=== PATIENT | male | born 1980 | race Caucasian/White ===

== ENCOUNTER 2022-06-22 00:05 | Inpatient (IN) | payer MEDICAID, OTHER ==
[~2022-06-22] VITALS: Ht 182.9 cm; Wt 104.5 kg
[2022-06-22] VITALS (12 sets, daily range): BP systolic 107–134; BP diastolic 62–82
[~2022-06-22 00:05] MED LIST: IBUP-1986 PO; METH-360 PO; ONDA4TAB12 PO
[2022-06-22 01:18] LABS: BASOPHILS # (AUTO) 0.1 X10'3 (0-0.2); BASOPHILS % (AUTO) 1.1 % (0-1); EOSINOPHILS # (AUTO) 0.2 X10'3 (0-0.9); EOSINOPHILS % (AUTO) 1.9 % (0-6); LYMPHOCYTES # (AUTO) 2.7 X10'3 (1.1-4.8); LYMPHOCYTES % (AUTO) 26.5 % (21-51); MEAN CORPUSCULAR HEMOGLOBIN 22.1 PG (27.0-31.0); MEAN CORPUSCULAR HGB CONC 31.3 g/dL (33.0-36.5); MEAN CORPUSCULAR VOLUME 70.7 FL (78-98); MEAN PLATELET VOLUME 8.4 FL (7.4-10.4); MONOCYTES # (AUTO) 0.7 X10'3 (0-0.9); MONOCYTES % (AUTO) 6.6 % (2-12); NEUTROPHILS # (AUTO) 6.5 X10'3 (1.8-7.7); NEUTROPHILS % (AUTO) 63.9 % (42-75); PLATELET COUNT 377 X10'3 (140-440); RED BLOOD COUNT 2.77 X10'6 (4.70-6.10); RED CELL DISTRIBUTION WIDTH 19.1 % (11.5-14.5); WHITE BLOOD COUNT 10.1 X10'3 (4.5-11.0)
[2022-06-22 01:25] LABS: HEMATOCRIT 19.6 % (42.0-52.0); HEMOGLOBIN 6.1 g/dl (14.0-17.9)
[2022-06-22 01:30] LABS: ALANINE AMINOTRANSFERASE 26 U/L (12-78); ALBUMIN 2.7 G/DL (3.4-5.0); ALBUMIN/GLOBULIN RATIO 0.9 (1.1-1.5); ALKALINE PHOSPHATASE 88 IU/L (46-116); ANION GAP 7 (8-16); ASPARTATE AMINO TRANSFERASE 16 U/L (10-37); BILIRUBIN,TOTAL 0.1 MG/DL (0.1-1.0); BLOOD UREA NITROGEN 16 MG/DL (7-18); BUN/CREATININE RATIO 21.1 (5.4-32.0); CALCIUM 7.5 MG/DL (8.5-10.1); CHLORIDE 105 MMOL/L (99-107); CREATININE 0.76 MG/DL (0.60-1.10); GLUCOSE 127 MG/DL (70-104); LIPASE 161 U/L (73-393); POTASSIUM 3.6 MMOL/L (3.5-5.1); SODIUM 135 MMOL/L (135-145); TOTAL CARBON DIOXIDE 22.7 MMOL/L (24-32); TOTAL PROTEIN 5.8 G/DL (6.4-8.2); eGFR > 90 ML/MIN
[2022-06-22] MEDS ORDERED: ondansetron/PF 4mg/2ml inj IV ONE ×3 (02:15→05:00)
[2022-06-22 03:33] LABS: CLARITY,URINE CLEAR (Clear); COLOR,URINE YELLOW (Yellow); GLUCOSE, URINE NEGATIVE (Neg); KETONES,URINE NEGATIVE (Neg); LEUKOCYTE ESTERASE ,URINE NEGATIVE (Neg); NITRITES, URINE NEGATIVE (Neg); OCCULT BLOOD,URINE NEGATIVE (Neg); PH,URINE 5.5 (4.8-8.0); PROTEIN,URINE NEGATIVE (Neg); UROBILINOGEN,URINE 0.2 E.U/dL (0.2-1.0)
[2022-06-22 03:39] LABS: UA COLLECTION TYPE URINAL
[2022-06-22] MEDS ORDERED: pantoprazole 40MG/NS 100ML BAG 100 ML IV ONE (04:00)
[2022-06-22] MEDS ORDERED: tranexamic acid 1gm/0.7% sal. 100 ML IV ONE (04:00)
[2022-06-22] MEDS ORDERED: octreotide inj. 1,250 MCG in normal saline 250ml IV soln 250 ML IV ONE (04:00)
[2022-06-22] MEDS ORDERED: pantoprazole IV 80 MG in normal saline 100ml IV soln 100 ML IV ONE (04:00)
[2022-06-22 04:23] LABS: ANISOCYTOSIS 2+; ELLIPTOCYTES 1+; MICROCYTOSIS 1+; PLATELET ESTIMATE NORMAL; POLYCHROMASIA FEW
[2022-06-22 04:24] LABS: ACANTHOCYTES FEW; BURR CELLS FEW; TEAR DROP CELLS FEW
[2022-06-22] MEDS ORDERED: octreotide inj. 500 MCG in normal saline 100ml IV soln 97.5 ML IV SCH ×2 (04:25→12:30)
[2022-06-22 04:26] LABS: MAGNESIUM 1.7 MG/DL (1.5-2.4)
[2022-06-22] MEDS ORDERED: ringers solution, lacted 1,000 ML IV ONE (04:30)
[2022-06-22 04:32] LABS: ETHANOL < 0.010 GM/DL (0.0-0.010)
[2022-06-22 04:53] LABS: APTT 20 SECONDS (22-32)
[2022-06-22 05:23] LABS: CREATINE KINASE 103 U/L (39-308)
[2022-06-22 06:07] LABS: URINE AMPHETAMINE SCREEN POSITIVE (Neg); URINE BARBITUATE SCREEN NEGATIVE (Neg); URINE BENZODIAZEPINES SCREEN NEGATIVE (Neg); URINE CANNABINOID SCREEN NEGATIVE (Neg); URINE COCAINE SCREEN NEGATIVE (Neg); URINE METHADONE SCREEN NEGATIVE (Neg); URINE OPIATE SCREEN NEGATIVE (Neg); URINE PHENCYCLIDINE SCREEN NEGATIVE (Neg)
[2022-06-22 06:08] LABS: OCCULT BLOOD STOOL POSITIVE (Neg)
[2022-06-22] MEDS: pantoprazole 40MG/NS 100ML BAG 100 ML IV SCH ×3 (06:30→17:17)
--- NOTE | 2022-06-22 06:30 | NUR ---
first contact with pt, found supine in bed. vss. pt is pale, states he "does not feel well". pt has not had any episodes of bloody emesis recently. pt is awaiting GI lab. pt in no distress. awating admit orders.
--- NOTE | 2022-06-22 07:00 | NUR ---
per blood bank, pt has "anti [place]" blood and "other reactions". blood must be sent to [place] for further eval. blood will not be here until approx 1600. emergent cross matched blood is available. will inform .
[2022-06-22 08:36] LABS: MEAN CORPUSCULAR HEMOGLOBIN 22.3 PG (27.0-31.0); MEAN CORPUSCULAR HGB CONC 31.4 g/dL (33.0-36.5); MEAN CORPUSCULAR VOLUME 70.9 FL (78-98); PLATELET COUNT 320 X10'3 (140-440); RED BLOOD COUNT 2.46 X10'6 (4.70-6.10); RED CELL DISTRIBUTION WIDTH 18.7 % (11.5-14.5); WHITE BLOOD COUNT 8.4 X10'3 (4.5-11.0)
[2022-06-22 08:39] LABS: HEMATOCRIT 17.4 % (42.0-52.0); HEMOGLOBIN 5.5 g/dl (14.0-17.9)
--- NOTE | 2022-06-22 08:45 | NUR ---
pt ambulated with steady gait to/from restroom. report dizziness, pt is pale. returned to bed without incident.
[2022-06-22] MEDS ORDERED: fentaNYL/PF 50MCG/1 ML 2ML syringe ONE (09:09)
[2022-06-22] MEDS ORDERED: MIDAZolam 1 MG/ML 5ML VIAL ONE (09:10)
--- NOTE | 2022-06-22 09:35 | NUR ---
first unit cross matched emergent blood started per dr. mariano.
--- NOTE | 2022-06-22 09:45 | NUR ---
pt to GI lab with GI nurse, blood infusing.
[2022-06-22] MEDS ORDERED: LIDOcaine Viscous 15ml cup ONE (10:24)
--- NOTE | 2022-06-22 11:30 | NUR ---
returned from GI lab, report at bedside. ICU doctor updated.
[2022-06-22] MEDS ORDERED: sodium chloride 0.45% 1,000 ML IV SCH (12:25)
[2022-06-22] MEDS ORDERED: magnesium 2GM in 50ml NS 50 ML IV PRN (12:25)
[2022-06-22] MEDS ORDERED: magnesium Cl slow-release 64mg tablet PO PRN (12:25)
[2022-06-22] MEDS ORDERED: POTASSIUM BICARB 20meq eff tab 20 MEQ TABLET.EFF PO PRN ×2 (12:25)
[2022-06-22] MEDS ORDERED: mag hydrox/Alum hydrox/simeth 30ml oral suspension PO PRN (12:25)
[2022-06-22] MEDS ORDERED: magnesium hydroxide 30ml (MOM) UD suspension PO PRN (12:25)
[2022-06-22] MEDS ORDERED: magnesium 4gm in 100ml NS 100 ML IV PRN (12:25)
[2022-06-22] MEDS ORDERED: potassium CL 10mEq/100ml bag 100 ML IV PRN (12:25)
[2022-06-22] MEDS ORDERED: acetaminophen 325mg tablet PO PRN (12:25)
[2022-06-22] MEDS ORDERED: ondansetron/PF 4mg/2ml inj IV PRN (12:25)
--- NOTE | 2022-06-22 13:00 | NUR ---
Pt alert, awake. Appears less pale. Interactive; responds appropriately. bedside.
[2022-06-22] MEDS ORDERED: NO HOME MEDS (13:52)
[2022-06-22 15:30] LABS: MAGNESIUM 1.8 MG/DL (1.5-2.4)
[2022-06-22 15:35] LABS: HEMATOCRIT 23.8 % (42.0-52.0); HEMOGLOBIN 7.5 g/dl (14.0-17.9); MEAN CORPUSCULAR HEMOGLOBIN 23.5 PG (27.0-31.0); MEAN CORPUSCULAR HGB CONC 31.4 g/dL (33.0-36.5); MEAN PLATELET VOLUME 8.2 FL (7.4-10.4); PLATELET COUNT 316 X10'3 (140-440); RED BLOOD COUNT 3.18 X10'6 (4.70-6.10); RED CELL DISTRIBUTION WIDTH 20.6 % (11.5-14.5); WHITE BLOOD COUNT 7.3 X10'3 (4.5-11.0)
[2022-06-22] MEDS ORDERED: pantoprazole 40MG/NS 100ML BAG 100 ML IV SCH (16:00)
[2022-06-22] MEDS ORDERED: docusate sod 100mg capsule PO SCH (20:00)
[2022-06-22] MEDS ORDERED: K and/or MAG REPLACEMENT MC SCH (20:00)
--- NOTE | 2022-06-22 20:55 | NUR ---
PATIENT IS FOUND WALKING OUTSIDE OF ER, BY THE MAIN LOBBY, WITH IV TUBINGS PULLED APART AND BLOOD DRIPPING ON THE FLOOR. PATIENT DIRECTED BACK TO HIS ROOM AND STATES HE IS UPSET "BECAUSE NO ONE IS TELLING HIM ANYTHING". SIG OTHER IS AT THE BEDSIDE AND NOT ENDORSING THE PATIENT'S BEHAVIOR. PATIENT STATES HE WANTS TO LEAVE THE HOSPITAL.
--- NOTE | 2022-06-22 21:05 | NUR ---
DR. GUZMAN NOTIFIED OF PATIENT BEHAVIOR AND DESIRE TO LEAVE THE HOSPITAL. DR. GUZMAN IS AWARE THAT PATIENT MAY CHOOSE TO LEAVE AMA.
--- NOTE | 2022-06-22 21:08 | NUR ---
PATIENT FOUND WALKING AROUND AMBULANCE BAY WITH IV CATHETERS X [address] SECURITY BROUGHT PATIENT BACK IN TO HIS ER ROOM AND IV CATHETERS REMOVED. PATIENT SIGNED AMA PAPERWORK AND DEPARTED FROM ER AMBULATORY.
--- NOTE | 2022-06-23 00:58 | NUR ---
Notified by blood bank that pt has a warm autoantibody, and is anti [place] negative
== END 2022-06-22 21:19 | disposition left against medical advice (07) | DRG 242 ==
LOC: ER 00:06 → ED HOLD 06:34
PROVIDERS: ADMIT Internal Medicine; ATTEND Internal Medicine
PROC: 30233N1 Transfusion of Nonautologous Red Blood Cells into Peripheral Vein, Percutaneous Approach (ICD-10-PCS; principal; 2022-06-22)
DX: K22.11 Ulcer of esophagus with bleeding (principal); I85.01 Esophageal varices with bleeding; E87.2 Acidosis; D62 Acute posthemorrhagic anemia; R00.0 Tachycardia, unspecified; R07.9 Chest pain, unspecified; Z53.29 Procedure and treatment not carried out because of patient's decision for other reasons; F15.10 Other stimulant abuse, uncomplicated; F17.210 Nicotine dependence, cigarettes, uncomplicated; K44.9 Diaphragmatic hernia without obstruction or gangrene; Z83.3 Family history of diabetes mellitus; Z87.19 Personal history of other diseases of the digestive system; Z91.19 Patient's noncompliance with other medical treatment and regimen; Z79.899 Other long term (current) drug therapy
CPT/HCPCS: 36415; 36430; 43235; 71250; 74176; 80053; 80305; 80320; 81003; 82272; 82550; 83690; 83735; 84100; 84132; 84443; 84484; 85008; 85025; 85027; 85610; 85730; 86870; 86880; 86885; 86900; 86901; 86902; 86905; 86906; 86922; 93005; 96374; 99152; 99285; A4615; A4620; C9113; G0378; J2250; J2354; J2405; J3010; J3490; J7030; J7050; J7120; P9016

== ENCOUNTER 2022-08-21 04:17 | Emergency (ER) | payer MEDICAID ==
[~2022-08-21] VITALS: Ht 182.9 cm; Wt 104.5 kg
[~2022-08-21 04:17] MED LIST changes: -IBUP-1986 PO; -METH-360 PO; +NO HOME MEDS; -ONDA4TAB12 PO
[2022-08-21] MEDS ORDERED: pantoprazole 40mg Tablet.DR PO ONE (05:05)
[2022-08-21] MEDS ORDERED: ondansetron 4mg rapidly disintigrating tab PO ONE (05:05)
[2022-08-21] MEDS ORDERED: famotidine 20mg tablet PO ONE (05:05)
[2022-08-21] MEDS ORDERED: LIDOcaine Viscous 15ml cup MM ONE (05:05)
[2022-08-21] MEDS ORDERED: mag hydrox/Alum hydrox/simeth 30ml oral suspension PO ONE (05:05)
[2022-08-21 05:28] LABS: MEAN PLATELET VOLUME 7.7 FL (7.4-10.4); RED CELL DISTRIBUTION WIDTH 16.8 % (11.5-14.5); WHITE BLOOD COUNT 7.5 X10'3 (4.5-11.0)
[2022-08-21 05:29] LABS: BASOPHILS # (AUTO) 0.1 X10'3 (0-0.2); BASOPHILS % (AUTO) 1.2 % (0-1); EOSINOPHILS # (AUTO) 0.2 X10'3 (0-0.9); EOSINOPHILS % (AUTO) 2.6 % (0-6); HEMOGLOBIN 8.3 g/dl (14.0-17.9); LYMPHOCYTES # (AUTO) 1.7 X10'3 (1.1-4.8); LYMPHOCYTES % (AUTO) 23.3 % (21-51); MEAN CORPUSCULAR HEMOGLOBIN 20.1 PG (27.0-31.0); MEAN CORPUSCULAR HGB CONC 30.6 g/dL (33.0-36.5); MEAN CORPUSCULAR VOLUME 65.5 FL (78-98); MONOCYTES # (AUTO) 0.7 X10'3 (0-0.9); MONOCYTES % (AUTO) 8.8 % (2-12); NEUTROPHILS # (AUTO) 4.8 X10'3 (1.8-7.7); NEUTROPHILS % (AUTO) 64.1 % (42-75); PLATELET COUNT 566 X10'3 (140-440); RED BLOOD COUNT 4.12 X10'6 (4.70-6.10)
[2022-08-21 05:36] LABS: ALANINE AMINOTRANSFERASE 28 U/L (12-78); ALBUMIN 3.1 G/DL (3.4-5.0); ALBUMIN/GLOBULIN RATIO 0.8 (1.1-1.5); ALKALINE PHOSPHATASE 114 IU/L (46-116); ANION GAP 6 (8-16); ASPARTATE AMINO TRANSFERASE 20 U/L (10-37); BILIRUBIN,TOTAL 0.3 MG/DL (0.1-1.0); BLOOD UREA NITROGEN 10 MG/DL (7-18); BUN/CREATININE RATIO 11.8 (5.4-32.0); CALCIUM 8.8 MG/DL (8.5-10.1); CHLORIDE 106 MMOL/L (99-107); CREATININE 0.85 MG/DL (0.60-1.10); GLUCOSE 121 MG/DL (70-104); SODIUM 138 MMOL/L (135-145); eGFR > 90 ML/MIN
[2022-08-21] MEDS ORDERED: FERR-119 PO (05:55)
[2022-08-21] MEDS ORDERED: BISA-79 PO (05:55)
[2022-08-21] MEDS ORDERED: PANT-47 PO (05:55)
[2022-08-21 06:06] VITALS: BP 139/94
== END 2022-08-21 06:25 | disposition home or self-care (01) ==
LOC: ER 04:18
DX: D50.9 Iron deficiency anemia, unspecified (principal); R94.6 Abnormal results of thyroid function studies; R07.89 Other chest pain
CPT/HCPCS: 36415; 71045; 80053; 83880; 84484; 85025; 93005; 99285

== ENCOUNTER 2022-08-29 03:16 | Emergency (ER) | payer MEDICAID ==
[~2022-08-29] VITALS: Ht 182.9 cm; Wt 109.1 kg
[~2022-08-29 03:16] MED LIST changes: +BISA-79 PO; +FERR-119 PO; +PANT-47 PO
[2022-08-29 04:00] VITALS: BP 112/74
[2022-08-29] MEDS ORDERED: famotidine 20mg tablet PO ONE (04:10)
[2022-08-29] MEDS ORDERED: PANT-47 PO (04:10)
[2022-08-29] MEDS ORDERED: FERR325T28 PO (04:10)
[2022-08-29] MEDS ORDERED: DOCU-171 PO (04:10)
[2022-08-29] MEDS ORDERED: pantoprazole 40mg Tablet.DR PO ONE (04:10)
== END 2022-08-29 04:27 | disposition home or self-care (01) ==
LOC: ER 03:16
DX: K29.70 Gastritis, unspecified, without bleeding (principal); Z79.899 Other long term (current) drug therapy
CPT/HCPCS: 93005; 99283